=== PATIENT | female | born 1965 | race Caucasian/White ===

== ENCOUNTER 2019-08-11 13:10 | Emergency (ER) | payer OTHER, SELFPAY ==
[2019-08-11 13:19] VITALS: BP 173/98; PULSE 103; RESP 24; TEMP 36.8; O2SAT 100
--- NOTE | 2019-08-11 13:53 | ED_ITS ---
HPI - Epistaxis <MADYSON Hernández - Last Filed: 08/11/19 23:12> General Chief complaint: Nasal Problem Stated complaint: hx of bad nose bleeds/on Prasugrel 10mg today Time Seen by Provider: 08/11/19 13:19 Source: patient Mode of arrival: Ambulatory Limitations: no limitations History of Present Illness HPI Narrative: This is a 53 year female, nonsmoker, who presents to ED with significant other with chief complain of nose bleed which started 12 30 spontaneously while she was cleaning bathroom. Patient states this is her 4th significant nose bleed that required ED visits. Patient had nasal packings in the past treated this. She is on baby aspirin and Prasugrel 10 mg daily after she had TX last year with stent procedure. Patient reports she bruises easily. Patient denies chest pain or dizziness. 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 Review of Systems <MADYSON Hernández - Last Filed: 08/11/19 23:12> Review of Systems Narrative: General: Denies fever, chills, fatigue, malaise, sweats. HEENT: See HPI Respiratory: Denies dyspnea, cough, wheezing, hemoptysis, sputum. Cardiovascular: Denies chest pain, palpitations, orthopnea, edema. Gastrointestinal: Denies nausea, vomiting, abdominal pain, diarrhea, const ipation, melena. : Denies dysuria, frequency, incontinence, hematuria, urinary retention. Musculoskeletal: Denies weakness, joint pain or bony pain. Skin: Denies rash, skin lesions, or other. Neurologic: Denies weakness, headache, numbness, change in speech, confusion, seizures, incoordination. Psychiatric: No concerning psychosocial issues. 12-point review of systems is negative except for those stated above. Hematologic/Lymphatic Hematologic/Lymphatic: Reports as per HPI Patient History <MADYSON Hernández - Last Filed: 08/11/19 23:12> Medical History CAD (coronary artery disease) (Acute) Hyperlipidemia (Acute) Myocardial infarction (Acute) Surgical History History of heart artery stent (Acute) Social History Smoking Status: Never smoker substance use type: does not use Exam <MADYSON Hernández - Last Filed: 08/11/19 23:12> Narrative Exam Narrative: General appearance: well developed, well nourished, apprehensive. Head: normocephalic, atraumatic, no scalp lesions, non-tender. ENT: Bilateral auditory canals and tympanic membranes clear. Hearing grossly intact. Copious bright red nose bleed from right anterior septum. No purulent discharge, septal hematoma or deviation. Facial sinuses nontender to palpate. Mucous membrane moist, no mucosal lesion. Throat without erythema, tonsillar hypertrophy or exudate. Uvula in midline, airway patent. No significant postnasal drip from epistaxis. Neck/Thyroid: neck supple, full range of motion, no visible masses or meningeal signs. No JVD, non-tender without lymphadenopathy. Skin: no suspicious rashes, lesions over visible areas. Warm and dry and appropriate color for ethnicity. Heart: no clubbing, no cyanosis, no edema. S1 and S2 normal. RRR w/o murmurs, clicks, or bruits. Lungs: Breathing even and unlabored. No stridor. No accessory muscles used. Able to speak in full sentences. Chest: normal shape and expansion. Abdomen: non-obese, non-distended. Neurologic: alert and oriented. Cognitive exam, KITCHEN ASSISTANT and PNS grossly intact on informal exam. Psych: good eye contact, flat affect. Initial Vital Signs Initial Vital Signs: Vital Signs Temperature 98.3 F 08/11/19 13:19 Pulse Rate 103 H 08/11/19 13:19 Respiratory Rate 24 08/11/19 13:19 Blood Pressure 173/98 H 08/11/19 13:19 Pulse Oximetry 100 08/11/19 13:19 <Sha Early DO - Last Filed: 08/17/19 07:24> Initial Vital Signs Initial Vital Signs: Vital Signs Temperature 98.3 F 08/11/19 13:19 Pulse Rate 103 H 08/11/19 13:19 Respiratory Rate 24 08/11/19 13:19 Blood Pressure 173/98 H 08/11/19 13:19 Pulse Oximetry 100 08/11/19 13:19 Procedures <Valente Paz PRIVATE SECURITY GUARD - Last Filed: 08/11/19 23:12> Epistaxis Control Time Out Performed: Yes Nostril: right Nose Prepped With: oxymetazoline Direct Inspection: yes Clots Removed by: blowing nose Cautery Used: silver nitrate Device Inserted: nasal tampon (Rapid rhino packing 4.5) Patient Tolerated Procedure: well and no complications Scores <Valente UrvashiVAMSHI gonzalezP - Last Filed: 08/11/19 23:12> GCS [place] coma scale eye opening: Spontaneous [place] coma scale verbal response: Orientated [place] coma scale motor response: Obey commands Laura coma scale total score: 15 Course <[facility] - Last Filed: 08/11/19 23:12> Orders Ordered: Discontinued Medications Oxymetazoline HCl (Afrin) 2 sprays NASAL NOW ONE Stop: 08/11/19 13:20 Silver Nitrate/Potassium Nitrate (Silver Nitrate Stick) 1 each TOP NOW ONE Stop: 08/11/19 14:09 Vital Signs Vital signs: Vital Signs - 8 hr 08/11/19 16:46 Pulse Rate 70 Respiratory Rate 16 Blood Pressure 149/81 H Pulse Oximetry 99 <Sha Early DO - Last Filed: 08/17/19 07:24> Orders Ordered: Discontinued Medications Oxymetazoline HCl (Afrin) 2 sprays NASAL NOW ONE Stop: 08/11/19 13:20 Silver Nitrate/Potassium Nitrate (Silver Nitrate Stick) 1 each TOP NOW ONE Stop: 08/11/19 14:09 Vital Signs Vital signs: Vital Signs - 8 hr 08/11/19 16:46 Pulse Rate 70 Respiratory Rate 16 Blood Pressure 149/81 H Pulse Oximetry 99 MDM - Epistaxis <[facility] - Last Filed: 08/11/19 23:12> Differential Diagnosis Differential diagnosis: Likely anterior epistaxis and posterior epistaxis Medical Records Attestation: I reviewed the patient's medical records. Lab Data Attestation: I reviewed the patient's lab results. Result diagrams: 08/11/19 14:18 Labs: Lab Results 08/11/19 08/11/19 Range/Units 14:18 14:18 WBC 5.6 (4.5-11.0) X10^3/uL RBC 4.45 (4.0-5.2) X10^6/uL Hgb 13.3 (12.0-16.0) g/dL Hct 39.8 (36-46) % MCV 89.6 (80-100) fL MCH 29.9 (26-34) PG MCHC 33.3 (30-36) % RDW 13.4 (11.6-14.8) % Plt Count 216 (150-400) X10^3/uL Neut % (Auto) 67.6 (50-75) % Lymph % (Auto) 23.7 L (25-40) % [place] % (Auto) 7.0 (3-14) % Eos % (Auto) 1.1 L (2-4) % Baso % (Auto) 0.6 (0-2) % Neut # (Auto) 3800 (8776-7014) /uL Lymph # (Auto) 1300 (1452-5711) /uL [place] # (Auto) 400 (0-900) /uL Eos # (Auto) 100 (0-450) /uL Baso # (Auto) 0 (0-100) /uL PT 11.6 (10.1-12.7) SECONDS INR 1.0 (0.9-1.3) APTT 32 (26.4-36.2) SECONDS MDM Narrative Medical decision making narrative: Please see procedural note. Dr. Early consulted for this procedure and received verbal guidance for this. Attempted epistaxis control after applied direct pressure with nasal clips after Afrin soaked with cotton ball which failed. Attempted silver nitrate cauterization on right anterior septum without good result. Patient still had slow oozing bleeding from the site after additional 20 minutes direct pressure with nasal clip application. Rapid rhino packing was inserted in anterior nasal with size 4.5 which patient tolerated well. Patient was re-evaluated after 20 minutes without further significant bleeding or posterior drips noted. CBCs and coag tests were unremarkable. Discussed return precautions and patient verbalized understanding. The rest of Afrin bottle has provided to patient and we reviewed how to stop nose bleed this recurs at home after rapid rhino packing is removed. Patient also given nasal clips. Patient advised to follow-up with primary care physician or ENT provider to remove packing. Patient inquired of continuing her routine medications. Since her platelet counts and coag is within well normal limits she should continue with this medication for stent and cardiac history. She advised to contact resistor testing machine operator if she has further questions. All questions were reviewed and answered and patient in agreement with the treatment plan. <Sha Nneka, DO - Last Filed: 08/17/19 07:24> Lab Data Labs: Lab Results 08/11/19 08/11/19 Range/Units 14:18 14:18 WBC 5.6 (4.5-11.0) X10^3/uL RBC 4.45 (4.0-5.2) X10^6/uL Hgb 13.3 (12.0-16.0) g/dL Hct 39.8 (36-46) % MCV 89.6 (80-100) fL MCH 29.9 (26-34) PG MCHC 33.3 (30-36) % RDW 13.4 (11.6-14.8) % Plt Count 216 (150-400) X10^3/uL Neut % (Auto) 67.6 (50-75) % Lymph % (Auto) 23.7 L (25-40) % [place] % (Auto) 7.0 (3-14) % Eos % (Auto) 1.1 L (2-4) % Baso % (Auto) 0.6 (0-2) % Neut # (Auto) 3800 (0520-1887) /uL Lymph # (Auto) 1300 (4114-9414) /uL [place] # (Auto) 400 (0-900) /uL Eos # (Auto) 100 (0-450) /uL Baso # (Auto) 0 (0-100) /uL PT 11.6 (10.1-12.7) SECONDS INR 1.0 (0.9-1.3) APTT 32 (26.4-36.2) SECONDS Discharge Plan Departure Patient Disposition: Home Clinical Impression: Epistaxis Discharge Date/Time: 08/11/19 16:47 Instructions: DI for Nosebleed Activity Restrictions/Additional Instructions: You have been diagnosed with [epistaxis and your taking anti-platelet and aspirin daily for cardiac condition. CBC and coag tests are assuring. Nose bleed has stopped by rhino packing size 4.5. This has to be removed in about 2 days. Please contact your primary care doctor or ENT specialist for this.]. What to do: *Take your medications as directed. *Follow up with your primary care provider in 2-3 days, call for an appointment. Let them know you were seen in the ED and that we asked you to be seen in follow up. *Return to ED if you have any new, worsening, or concerning symptoms, such as [chest pain, breathing difficulty, unable to tolerate fluids, fever, purulent discharge from nose, recurring bleeding or any acute concerns]. Referrals: Coy Enriquez MD [Physician] - <Sha Early DO - Last Filed: 08/17/19 07:24> Cosign ED Attending Cosignature Attestation: Dr Early Co-Sign Statement: I was available for consultation during this patient's emergency department visit. This chart is signed by myself for administrative purposes only. I did not have direct contact with this patient during this visit. They were seen indepen dently by the APC.
[2019-08-11 14:24] LABS: Add Manual Diff / Slide Review NO; Basophils Absolute Auto 0 /uL (0-100); Basophils Percent Auto 0.6 % (0-2); Eosinophils Absolute Auto 100 /uL (0-450); Eosinophils Percent Auto 1.1 % (2-4); Hematocrit 39.8 % (36-46); Hemoglobin 13.3 g/dL (12.0-16.0); Lymphocytes Absolute Auto 1300 /uL (1100-4500); Lymphocytes Percent Auto 23.7 % (25-40); Mean Corpuscular HGB Conc 33.3 % (30-36); Mean Corpuscular Hemoglobin 29.9 PG (26-34); Mean Corpuscular Volume 89.6 fL (80-100); Monocytes Absolute Auto 400 /uL (0-900); Neutrophils Absolute Auto 3800 /uL (1500-7000); Neutrophils Percent Auto 67.6 % (50-75); Platelet Count 216 X10^3/uL (150-400); Red Blood Cell Count 4.45 X10^6/uL (4.0-5.2); Red Cell Distribution Width 13.4 % (11.6-14.8); White Blood Cell Count 5.6 X10^3/uL (4.5-11.0)
[2019-08-11 14:32] LABS: Prothrombin Time 11.6 SECONDS (10.1-12.7)
[2019-08-11 14:35] LABS: PTT Partial Thromboplastin Tim 32 SECONDS (26.4-36.2)
[2019-08-11 16:46] VITALS: BP 149/81; PULSE 70; RESP 16; O2SAT 99
--- NOTE | 2019-08-11 16:48 | PC.NURSE ---
MADYSON Victor administered meds. Pt left before scanning
== END 2019-08-11 16:47 | disposition home or self-care (01) ==
PROVIDERS: Emergency Provider Nurse Practitioner Family
DX: R04.0 Epistaxis (principal)
CPT/HCPCS: 17250; 85025; 85610; 85730; 99281; 99283

== ENCOUNTER 2019-08-17 20:45 | Emergency (ER) | payer OTHER, SELFPAY ==
[2019-08-17 20:55] VITALS: BP 169/90; PULSE 110; RESP 16; TEMP 37; O2SAT 97; BMI 23.3
--- NOTE | 2019-08-17 20:55 | ED_ITS ---
HPI - Epistaxis General Chief complaint: Nasal Problem Stated complaint: bloody nose Time Seen by Provider: 08/17/19 20:47 Source: patient and family Mode of arrival: Ambulatory Limitations: no limitations History of Present Illness HPI Narrative: 53F nonsmoker with history of CAD with prior stent is on plavix and returns with complaint of nose bleed. She was seen here a few days ago and had spontaneous bleed from R nare with attempt to cauterize, but required RhinoRocket. She followed up with her ENT and had rocket removed and needed another cautery. The bleeding stopped and about 1-2 hours after taking her P lavix tonight the bleeding started again, heavy. It started from R nare, but ended up bleeding from both. She denies injury or trauma. She denies dizziness, weakness, or lightheadedness. She has had slightly elevated BP over the week and is taking Hydralazine as prescribed by Cardio when her systolic is over 140 or diastolic is over 85. She denies chest pain or shortness of breath. Her ENT and cardio have been in contact and cardio feels strongly that plavix be maintained. MD complaint: epistaxis Location: right nostril Onset (ago): hour(s) Duration: constant Context: history of previous, other anticoagulant use and hypertension Associated symptoms: sinus pain Treatment prior to arrival: nose pinching and head leaned forward Review of Systems Constitutional Constitutional: Denies chills, Denies fatigue, Denies fever(s), Denies frequent falls, Denies lethargy and Denies weakness Eyes Eyes: Denies change in vision, Denies eye discharge, Denies irritation and Denies loss of vision ENT Ears, Nose, Mouth, and Throat: Denies change in voice, Denies dizziness, Reports epistaxis, Denies neck pain, Denies sore throat and Denies throat swelling Cardiovascular Cardiovascular: Denies chest pain, Denies irregular heart rhythm, Denies lightheadedness, Denies palpitations, Denies dyspnea, Denies dyspnea on exertion and Denies orthopnea Respiratory Respiratory: Denies cough, Denies dyspnea, Denies dyspnea on exertion and Denies wheezing Gastrointestinal Gastrointestinal: Denies abdominal pain, Denies change in bowel habits, Denies diarrhea, Denies nausea and Denies vomiting Musculoskeletal Musculoskeletal: Denies neck pain and Denies numbness Integumentary/Breasts Skin/Breast: Denies pruritus, Denies erythema, Denies rash and Denies wounds Neurologic Neurologic: Denies behavioral changes, Denies confusion, Denies dizziness, Denies frequent falls, Denies loss of vision, Denies numbness and Denies weakness Psychiatric Psychiatric: Denies anxiety, Denies behavioral changes, Denies confusion, Denies depression, Denies homicidal ideation and Denies suicidal ideation Endocrine Endocrine: Denies fatigue, Denies flushing and Denies palpitations Hematologic/Lymphatic Hematologic/Lymphatic: Denies easy bruising Allergic/Immunologic Allergic/Immunologic: Denies urticaria, Denies throat swelling and Denies wheezing Patient History Medical History CAD (coronary artery disease) (Acute) Hyperlipidemia (Acute) Myocardial infarction (Acute) Surgical History History of heart artery stent (Acute) Social History Smoking Status: Never smoker substance use type: does not use Smoking Status: Never smoker Exam Narrative Exam Narrative: GENERAL: [53] year old patient appears stated age. Well- nourished, well-developed patient, in mild distress. Anxious, nose clip in place, fresh blood noted HEAD: Atraumatic. Normocephalic. EYES: Pupils equal round and reactive. Extraocular motions intact. No scleral icterus. No injection or drainage. ENT: Active bleeding from R nare. With fresh clots, some in posterior pharynx. Unable to visualize source. Throat without erythema, tonsillar hypertrophy or exudate. Airway patent. NECK: Trachea midline. Non tender CARDIOVASCULAR: Regular rate and rhythm without murmurs, gallops, or rubs. RESPIRATORY: Clear to auscultation. Breath sounds equal bilaterally. No wheezes, rales, or rhonchi. GASTROINTESTINAL: Abdomen soft, non-tender, nondistended. EXTREMITIES: No edema or joint tenderness. BACK: Nontender without deformity or crepitance. No flank tenderness. NEURO: AOx3. SKIN: No rash or erythema of visible areas Initial Vital Signs Initial Vital Signs: Vital Signs Temperature 98.6 F 08/17/19 20:55 Pulse Rate 110 H 08/17/19 20:55 Respiratory Rate 16 08/17/19 20:55 Blood Pressure 169/90 H 08/17/19 20:55 Pulse Oximetry 97 08/17/19 20:55 Procedures Epistaxis Control Time Out Performed: No Nostril: right Direct Inspection: unable to visualize Clots Removed by: suction Device Inserted: hemostatic balloon Patient Tolerated Procedure: well Course Course Course Narrative: at one point patient sneezed and rocket became dislodged anteriorly, air taken out to attempt replacement and bleeding immediately became profuse. Again it was controlled when rhino rocket completely inserted. She has been observed for some time and no ongoing bleeding noted. Labs unremarkable and patient taken for walk through department and no bleeding noted. Return precautions given, questions answered. Orders Ordered: ED Orders 08/17/19 21:29 Complete Blood Count AUTO DIFF Stat Prothrombin Time INR Stat Discontinued Medications Tranexamic Acid (Cyklokapron) 1,000 mg INH NOW ONE Stop: 08/17/19 20:57 Last Admin: 08/17/19 21:04 Dose: 1,000 mg Documented by: JOHN Consultations Consultation #1: call to patient cardiology group. resolute professional cardiology recommends against medication change tonight and that patient call her cardiology office in the morning to discuss ongoing Plavix with her actual childcare center director, she states she will send a note. Also, we discussed hydralazine for BP control and again recommendation against a change for now and that patient should also discuss this with her childcare center director office tomorrow. Consultation #2: call to patient environmental services supervisor ENT who is happy with our progress and suggests that bleeding very well could come back will patient is still on plavi x. Recommends that rocket stay in for upwards of a week and that she contact her actual ENT in the morning Vital Signs Vital signs: Vital Signs - 8 hr 08/17/19 20:55 08/17/19 21:48 08/17/19 22:52 Temperature 98.6 F Pulse Rate 110 H 80 74 Respiratory Rate 16 15 Blood Pressure 169/90 H Blood Pressure [Right Arm] 171/86 H 184/95 H Pulse Oximetry 97 100 100 MDM - Epistaxis Lab Data Result diagrams: 08/17/19 21:29 Labs: Lab Results 08/17/19 08/17/19 Range/Units 21:29 21:29 WBC 6.6 (4.5-11.0) X10^3/uL RBC 4.30 (4.0-5.2) X10^6/uL Hgb 13.2 (12.0-16.0) g/dL Hct 37.9 (36-46) % MCV 88.3 (80-100) fL MCH 30.8 (26-34) PG MCHC 34.9 (30-36) % RDW 13.2 (11.6-14.8) % Plt Count 236 (150-400) X10^3/uL Neut % (Auto) 51.9 (50-75) % Lymph % (Auto) 36.7 (25-40) % [place] % (Auto) 9.8 (3-14) % Eos % (Auto) 0.9 L (2-4) % Baso % (Auto) 0.7 (0-2) % Neut # (Auto) 3400 (4285-5484) /uL Lymph # (Auto) 2400 (0555-2080) /uL [place] # (Auto) 600 (0-900) /uL Eos # (Auto) 100 (0-450) /uL Baso # (Auto) 0 (0-100) /uL PT 12.1 (10.1-12.7) SECONDS INR 1.0 (0.9-1.3) Discharge Plan Departure Patient Disposition: Home Clinical Impression: Epistaxis Hypertension Qualifiers: Hypertension type: essential hypertension Qualified Code(s): I10 - Essential (primary) hypertension Discharge Date/Time: 08/17/19 23:06 Instructions: DI for Nosebleed Activity Restrictions/Additional Instructions: *You have been diagnosed with [acute anterior epistaxis, likely a capillary bleed] *What to do: *Follow up with your childcare center director and your ENT doctors tomorrow call for an appointment. Let them know you were seen in the Emergency Department and that we ask that you be seen in follow up. I spoke with environmental services supervisor doctors for both offices and they took notes, and encouraged calls to the office in the morning, but did NOT recommend any further changes tonight. *Return to ER if you should have any new, worsening or concerning symptoms Referrals: Apolinar Browne MD [Physician] -
[2019-08-17] MEDS: TRANEXAMIC ACID 1,000 MG VIAL 1000 MG INH (21:04)
--- NOTE | 2019-08-17 21:27 | PC.NURSE ---
Pt with large amount of bleeding from R nare. Dr Morgan at bedside. TXA applied to rhino rocket and inserted into R nare by . pt with large clot emesis. Bleeding controlled after rocket application. suctioned throughout procedure. Necktie Operator [employer] at [facility] paged. Pt in NAD. Resting sitting up in bed. Suction in hand. Lab called for draw.
[2019-08-17 21:35] LABS: Add Manual Diff / Slide Review NO; Basophils Absolute Auto 0 /uL (0-100); Basophils Percent Auto 0.7 % (0-2); Eosinophils Absolute Auto 100 /uL (0-450); Eosinophils Percent Auto 0.9 % (2-4); Hematocrit 37.9 % (36-46); Hemoglobin 13.2 g/dL (12.0-16.0); Lymphocytes Absolute Auto 2400 /uL (1100-4500); Lymphocytes Percent Auto 36.7 % (25-40); Mean Corpuscular HGB Conc 34.9 % (30-36); Mean Corpuscular Hemoglobin 30.8 PG (26-34); Mean Corpuscular Volume 88.3 fL (80-100); Monocytes Absolute Auto 600 /uL (0-900); Monocytes Percent Auto 9.8 % (3-14); Neutrophils Absolute Auto 3400 /uL (1500-7000); Neutrophils Percent Auto 51.9 % (50-75); Platelet Count 236 X10^3/uL (150-400); Red Cell Distribution Width 13.2 % (11.6-14.8); White Blood Cell Count 6.6 X10^3/uL (4.5-11.0)
[2019-08-17 21:46] LABS: Prothrombin Time 12.1 SECONDS (10.1-12.7)
[2019-08-17 21:48] VITALS: BP 171/86; PULSE 80; RESP 15; O2SAT 100
[2019-08-17 22:52] VITALS: BP 184/95; PULSE 74; O2SAT 100
== END 2019-08-17 23:06 | disposition home or self-care (01) ==
PROVIDERS: Emergency Provider Emergency Medicine
DX: R04.0 Epistaxis (principal); I10 Essential (primary) hypertension
CPT/HCPCS: 30901; 30903; 36415; 85025; 85610; 99284